=== PATIENT | female | born 1980 | race Caucasian/White ===

== ENCOUNTER → 2020-05-18 | Outpatient (CLI) | payer OTHER ==
[2020-05-18] MEDS: IOHEXOL 300 MG/ML 75 ML VIAL. IV ONE (10:40)
--- NOTE | 2020-05-18 11:13 | RAD ---
CT HEAD WITH IV CONTRAST History: Reason: IMBALANCE, FALLS, FREQUENT SLEEPING, HEADACHES Comparison: None. Technique: CT imaging was performed of the head with contrast. Exposure: One or more of the following individualized dose reduction techniques were utilized for thi s examination: 1. Automated exposure control 2. Adjustment of the mA and/or kV according to patient size 3. Use of iterative reconstruction technique. Findings: Extensive right cerebral hemispheric encephalomalacia. Dysmorphic mildly dilated appearance of the la teral ventricles. Left parietal approach ventricular catheter with tip in the left lateral ventricle. Right parietal approach ventricular shunt catheter with tip in the posterior right lateral ventricle . Dysmorphic appearance of the corpus callosum. Bilateral dural thickening, right greater than left. There is associated calcification on the right. No definite intracranial hemorrhage although evaluation is degraded with contrast. Inferior cerebellar tonsillar ectopia. Patent superior sagittal, straight, transverse and sigmoid sinuses. Imaged orbits are unremarkable. Partial opacification of numerous ethmoid air cells. Mastoid air cell s are clear. No acute calvarial fracture. Impression: 1. Extensive right cerebral hemispheric encephalomalacia. 2. Dysmorphic mildly dilated lateral ventricles with shunt catheters. Recommend comparison with prio r imaging studies to evaluate stability. 3. Bilateral shunt catheters in place with potentially abandoned left shunt catheter. Recommend clin ical correlation. 4. Bilateral dural thickening, left greater than right, may relate to prior intervention. 5. Inferior cerebellar tonsillar ectopia. Electronically signed by: Alex Song DO (05/18/2020 11:11 AM) [id number]
== END ==
LOC: CT 09:55
PROVIDERS: ATTEND Physician Assistant Medical
DX: G93.89 Other specified disorders of brain (principal); Q04.8 Other specified congenital malformations of brain
CPT/HCPCS: 70460; Q9967

== ENCOUNTER 2021-09-06 21:32 | Emergency (ER) | payer MEDICAID, OTHER ==
[~2021-09-06] VITALS: Ht 149.9 cm; Wt 54.9 kg
[2021-09-06 21:50] VITALS: BP 108/79
--- NOTE | 2021-09-06 21:53 | PHYS DOC ---
General Adult EDM: Chief Complaint: LACERATION/AVULSION HPI: HPI: Patient is a 41-year-old female who presents to the emergency department following a fall with complaints of head injury and a laceration to her left scalp. Patient reports that she was getting out of the shower and tripped over the aluminum lip bottom of the shower and fell and hit her head. No loss of consciousness, denies nausea, vomiting, seizure-like activity. Vaccines are up-to-date. 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 (AGUSTÍN EVERETT APRN) Review of Systems: Review of Systems: HENT: See HPI GI: See HPI Musculoskeletal: See HPI Integument: See HPI Neurologic: See HPI (AGUSTÍN EVERETT APRN) Allergies: Allergies: Allergies Coded Allergies Type Severity Reaction Last Updated Verified No Known Drug Allergies 05/18/20 No (AGUSTÍN EVERETT APRN) Physical Exam: PE: Constitutional: Well developed, well nourished, no acute distress, non-toxic appearance. [] HENT: Normocephalic,4cm laceration noted to l. scalp, bilateral external ears normal,no raccoon sign, no dooley sign, oropharynx moist, no oral exudates, nose normal. [] Eyes: PERRL, EOMI, conjunctiva normal, no discharge. [] Neck: Normal range of motion, no tenderness, supple, no stridor. [] Cardiovascular:Heart rate regular rhythm, no murmur [] Lungs & Thorax: Bilateral breath sounds clear to auscultation [] Abdomen: Bowel sounds normal, soft, no tenderness, no masses, no pulsatile masses. [] Skin: Warm, dry, no erythema, no rash. [] Back: No tenderness, normal rom Extremities: No tenderness, no cyanosis, no clubbing, ROM intact, no edema. contracture of l. arm [] Neurologic: Alert and oriented X 3, normal motor function, normal sensory function, no focal deficits noted. [] Psychologic: Affect normal, judgement normal, mood normal. [] (AGUSTÍN EVERETT APRN) EKG: EKG: [] (AGUSTÍN EVERETT APRN) Radiology/Procedures: Radiology/Procedures: [] (AGUSTÍN EVERETT APRN) Impressions: CT scan of the head without contrast 09/06/2021 Clinical History: Fall. Head injury. Technique: Unenhanced, contiguous, 5 mm axial sections were obtained through the head. One or more of the following individualized dose reduction techniques were utilized for this study: 1. Automated exposure control. 2. Adjustment of the mA and/or kV according to patient size. 3. Use of iterative reconstruction technique. Findings: Comparison study is dated 05/18/2020. Bilateral parietal ventriculostomy tubes are unchanged in position. The CT appearance of the ventricular system is not significantly changed. A large area of encephalomalacia is seen involving the majority of the right cerebral hemisphere No acute parenchymal abnormality is seen. No extra-axial fluid colle ction is noted. No skull fracture is seen. Impression: No acute intracranial abnormality is seen. CT scan of the cervical spine without contrast 09/06/2021 Clinical history: Fall with neck injury. Technique: Unenhanced, contiguous, 0.625 mm axial sections were obtained through the cervical spine. 2.5 mm reconstructed axial and 2 mm coronal and sagittal reconstructed images were obtained. One or more of the following individualized dose reduction techniques were utilized for this study: 1. Automated exposure control. 2. Adjustment of the mA and/or kV according to patient size. 3. Use of iterative reconstruction technique. Findings: Sagittal and coronal reconstructed images demonstrate mild lateral curvature of the cervical spine, convex to the left. There is slight reversal the normal cervical lordosis. Degenerative changes consisting of varying degrees of disc space narrowing, vertebral endplate sclerosis and mild anterior and posterior vertebral body osteophyte formation are seen throughout the cervical disc spaces. No fracture or subluxation cervical vertebrae is seen. Impression: No fracture or subluxation of the cervical vertebra is identified. Electronically signed by: Tomasz Hampton MD (09/06/2021 11:06 PM) [id number] DICTATED AND SIGNED BY: TOMASZ HAMPTON MD DATE: 09/06/217 CC: AGUSTÍN EVERETT APRN; GRACE SORTO ~ (VALERIA VASQUEZ DO) Heart Score: C/O Chest Pain: N/A Risk Factors: Risk Factors: DM, Current or recent (<one month) smoker, HTN, HLP, family history of CAD, obesity. Risk Scores: Score 0 - 3: 2.5% MACE over next 6 weeks - Discharge Home Score 4 - 6: 20.3% MACE over next 6 weeks - Admit for Clinical Observation Score 7 - 10: 72.7% MACE over next 6 weeks - Early Invasive Strategies (AGUSTÍN EVERETT APRN) Course & Med Decision Making: Course & Med Decision Making Pertinent Labs and Imaging studies reviewed. (See chart for details) Presents to the emergency department for a laceration to the scalp following a fall. Patient does have a history of shunts in her brain and mother is concerned that she may have fallen onto the area where she has a shunt therefore CT scan of her head and neck was performed. Let was applied, wound was cleansed in the emergency department and laceration repair was performed with parminder. Patient tolerated procedure. Patient educated on laceration care. CT scan of head is pending. Discussed patients case with supervising physician and he will follow up on CT imaging due to shift change [id number]. (AGUSTÍN EVERETT APRN) Dragon Disclaimer: Dragon Disclaimer: This electronic medical record was generated, in whole or in part, using a voice recognition dictation system. (AGUSTÍN EVERETT APRN) Laceration Repair Lac Repair Time:2149 Confirmed: Patient, procedure, site, and site correct Consent: Patient has given verbal consent Laceration location: Left scalp Shape: Linear Details: Clean with no foreign material Neurovascular, tendon exam: Intact Anesthesia: Let and 2% lidocaine Preparation: Sterile field established Irrigation: Wound irrigated with saline wound wash Skin closure: Parminder Number of parminder: 5 Post procedure exam: Circulation, motor, sensory exam intact, bleeding cont rolled. Complications: None Patient tolerated: Well Performed by: self Total time: 10 minutes (AGUSTÍN EVERETT APRN) Attending Co-Sign The patient was seen and interviewed as well as examined at the bedside. The chart was reviewed. The case was discussed. Agree with the plan of care. (VALERIA VASQUEZ DO) Departure Departure: Impression: Primary Impression: Laceration Additional Impression: Fall Qualified Codes: W19.XXXA - Unspecified fall, initial encounter Disposition: HOME / SELF CARE / HOMELESS Condition: GOOD Referrals: GRACE SORTO (PCP) Patient Instructions: Head Injury, Adult, Laceration Care, Adult Additional Instructions: You were seen in the emergency department following a fall. You had a laceration to your left scalp which was repaired with parminder. Please keep this area clean and dry. Wash with warm water and mild soap. You will need to fol low-up with your primary care provider return to the emergency department to have your parminder removed in 7 to 10 days. Do not pick at the parminder. Avoid vigorously washing your hair. Monitor for any signs of infection which include redness, warmth, swelling or drainage. You can take Tylenol and ibuprofen if you have any pain at home. You can also apply ice packs to the area. Follow-up with your primary care provider tomorrow. Return to the emergency department if you develop any signs of infection, confusion, poor coordination, intractable nausea or vomiting, inability to walk, new pain. AGUSTÍN EVERETT APRN September 06, 2021 21:53 VALERIA VASQUEZ DO September 07, 2021 05:57
[2021-09-06] MEDS ORDERED: LIDOCAINE/EPI/TETRACAINE TOPICAL GEL 3 ML. TP ONE (22:00)
--- NOTE | 2021-09-06 23:08 | RAD ---
CT scan of the head without contrast 09/06/2021 Clinical History: Fall. Head injury. Technique: Unenhanced, contiguous, 5 mm axial sections were obtained through the head. One or more of the following individualized dose reduction techniques were utilized for this study: 1. Automated exposure control. 2. Adjustment of the mA and/or kV according to patient size. 3. Use of iterative reconstruction technique. Findings: Comparison study is dated 05/18/2020. Bilateral parietal ventriculostomy tubes are unchanged in position. The CT appearance of the ventricu lar system is not significantly changed. A large area of encephalomalacia is seen involving the major ity of the right cerebral hemisphere No acute parenchymal abnormality is seen. No extra-axial fluid c ollection is noted. No skull fracture is seen. Impression: No acute intracranial abnormality is seen. CT scan of the cervical spine without contrast 09/06/2021 Clinical history: Fall with neck injury. Technique: Unenhanced, contiguous, 0.625 mm axial sections were obtained through the cervical spine. 2.5 mm reconstructed axial and 2 mm coronal and sagittal reconstructed images were obtained. One or more of the following individualized dose reduction techniques were utilized for this study: 1. Automated exposure control. 2. Adjustment of the mA and/or kV according to patient size. 3. Use of iterative reconstruction technique. Findings: Sagittal and coronal reconstructed images demonstrate mild lateral curvature of the cervica l spine, convex to the left. There is slight reversal the normal cervical lordosis. Degenerative verdin ges consisting of varying degrees of disc space narrowing, vertebral endplate sclerosis and mild ante rior and posterior vertebral body osteophyte formation are seen throughout the cervical disc spaces. No fracture or subluxation cervical vertebrae is seen. Impression: No fracture or subluxation of the cervical vertebra is identified. Electronically signed by: Tomsaz Hampton MD (09/06/2021 11:06 PM) [id number]
== END 2021-09-06 23:50 | disposition home or self-care (01) ==
LOC: ER 21:32
DX: S01.01XA Laceration without foreign body of scalp, initial encounter (principal); W18.09XA Striking against other object with subsequent fall, initial encounter; Y93.89 Activity, other specified; Y92.89 Other specified places as the place of occurrence of the external cause; Y99.8 Other external cause status
CPT/HCPCS: 12002; 70450; 72125; 99284

== ENCOUNTER 2021-09-15 20:05 | Emergency (ER) | payer MEDICAID ==
[~2021-09-15] VITALS: Ht 149.9 cm; Wt 55.0 kg
--- NOTE | 2021-09-15 20:13 | PHYS DOC ---
Past History Past Surgical History: Other Adult General HPI HPI Patient is a 41-year-old female presenting to the emergency department for evaluation of needing to get her jane out of her left side of her scalp. She has no complaints and there is no fevers. Review of Systems Review of Systems Constitutional: Denies fever or chills [] All other systems were reviewed and found to be within normal limits, except as documented in this note. Allergies Allergies Allergies Coded Allergies Type Severity Reaction Last Updated Verified No Known Drug Allergies 05/18/20 No Physical Exam Physical Exam Constitutional: Well developed, well nourished, no acute distress, non-toxic appearance. [] Skin: Wound site appears clean dry and intact with jane in place EKG EKG [] Radiology/Procedures Radiology/Procedures [] Heart Score C/O Chest Pain: No Risk Factors: Risk Factors: DM, Current or recent (<one month) smoker, HTN, HLP, family history of CAD, obesity. Risk Scores: Risk Factors: DM, Current or recent (<one month) smoker, HTN, HLP, family history of CAD, obesity. Course & Med Decision Making Course & Med Decision Making Decherd removed and patient was discharged in stable condition and told to return with any concerns. Dragon Disclaimer Dragon Disclaimer This electronic medical record was generated, in whole or in part, using a voice recognition dictation system. Departure Departure: Impression: Primary Impression: Encounter for staple removal Disposition: 01 HOME / SELF CARE / HOMELESS Condition: STABLE Referrals: GRACE SORTO (PCP) Patient Instructions: Staple Removal, Care After LUIS MONK DO September 15, 2021 20:13
[2021-09-15 20:21] VITALS: BP 142/88
== END 2021-09-15 20:20 | disposition home or self-care (01) ==
LOC: ER 20:05
DX: S01.01XD Laceration without foreign body of scalp, subsequent encounter (principal); X58.XXXD Exposure to other specified factors, subsequent encounter
CPT/HCPCS: 99281